=== PATIENT | female | born 1940 | race Hispanic/Latino ===

== ENCOUNTER 2017-08-10 07:41 | Day surgery (SDC) | payer MEDICARE ==
[2017-08-10 08:10] VITALS: TEMP 97.1; BMI 30.2
[2017-08-10] MEDS ORDERED: Propofol 10 mg/ml Inj (20 ML) ONE ×2 (09:16)
[2017-08-10] MEDS ORDERED: Lactated Ringer's 1,000 ML IV SCH (09:30)
[2017-08-10 11:21] VITALS: BP 142/66; PULSE 55; RESP 16; O2SAT 100
== END 2017-08-10 10:50 | disposition home or self-care (01) ==
LOC: C.ENDO 07:41
PROVIDERS: ATTEND Internal Medicine Gastroenterology
DX: K29.50 Unspecified chronic gastritis without bleeding (principal); K44.9 Diaphragmatic hernia without obstruction or gangrene; R19.7 Diarrhea, unspecified; R93.3 Abnormal findings on diagnostic imaging of other parts of digestive tract; R63.4 Abnormal weight loss; J44.9 Chronic obstructive pulmonary disease, unspecified; E03.9 Hypothyroidism, unspecified; I10 Essential (primary) hypertension; M06.9 Rheumatoid arthritis, unspecified; Z87.891 Personal history of nicotine dependence
CPT/HCPCS: 43239; 88305; 88313; 88342; J2001; J2704; J7120

== ENCOUNTER 2017-08-24 08:45 | Day surgery (SDC) | payer MEDICARE ==
[2017-08-24 10:36] VITALS: O2SAT 100
[2017-08-24] MEDS ORDERED: Propofol 10 mg/ml Inj (20 ML) ONE ×2 (10:45→12:10)
[2017-08-24 11:45] VITALS: RESP 20
[2017-08-24 13:11] VITALS: BP 153/61; PULSE 66; TEMP 97.8
== END 2017-08-24 12:45 | disposition home or self-care (01) ==
LOC: C.ENDO 08:45
PROVIDERS: ATTEND Internal Medicine Gastroenterology
DX: K57.30 Diverticulosis of large intestine without perforation or abscess without bleeding (principal); R19.7 Diarrhea, unspecified; K64.1 Second degree hemorrhoids
CPT/HCPCS: 45380; 88305; J2704